=== PATIENT | male | born 1965 ===

== ENCOUNTER 2024-05-03 14:52 | Inpatient (IN) | payer BC ==
[2024-05-03] MEDS ORDERED: Ondansetron PF 4 MG/2 ML Vial ONE (15:35)
[2024-05-03] MEDS ORDERED: Metoclopramide HCl 10 MG (2 mL) VIAL ONE (15:48)
[2024-05-03] MEDS ORDERED: Famotidine/PF 20 mg/2ml Vial ONE (15:48)
[2024-05-03 16:08] LABS: #Basophils 0.07 10x3/uL (0.0-0.2); #Eosinophils Less than 0.03 10x3/uL (0.0-0.7); %Basophils 0.5 % (0.0-1.0); %Lymphocytes 7.6 % (21.0-51.0); %Monocytes 2.3 % (0.0-10.0); %Neutrophils 88.9 % (42.0-75.0); Hemoglobin 16.3 g/dL (14.0-18.0); Mean Corpuscular HGB CONC 33.3 g/dL (32.0-36.0); Mean Corpuscular Hemoglobin 32.5 pg (27.0-31.0); Mean Corpuscular Volume 97.6 fL (78.0-98.0); Mean Platelet Volume 11.4 fL (7.4-10.4); Platelet Count 261 10x3/uL (130-400); RBC Distribution Width 12.3 % (11.5-14.5); Red Blood Cell (RBC) Count 5.02 mill/uL (4.70-6.10)
[2024-05-03 16:29] LABS: ALT (SGPT) 29 U/L (8-55); AST (SGOT) 22 U/L (5-34); Albumin 4.3 g/dL (3.5-5.0); Alkaline Phosphatase 66 U/L (40-110); Anion Gap 33 mmol/L (10-20); BUN (Urea Nitrogen) 14 mg/dL (8.4-25.7); Bilirubin, Total 0.7 mg/dL (0.2-1.2); Calc. Creatinine Clearance 0 mL/min (70-130); Calcium 10.1 mg/dL (7.8-10.44); Carbon Dioxide 12 mmol/L (22-29); Chloride 98 mmol/L (98-107); Estimated GFR 69; Globulin 4.3 g/dL (2.4-3.5); Glucose 287 mg/dL (70-105); Lipase 6 U/L (8-78); Magnesium 2.4 mg/dL (1.6-2.6); Potassium 4.6 mmol/L (3.5-5.1); Protein, Total 8.6 g/dL (6.0-8.3); Sodium 138 mmol/L (136-145); Troponin I Less than 0.010 ng/mL (< 0.028)
[2024-05-03 16:57] LABS: Analyzer IN Cardio ER; Base Excess -16.6 mEq/L (-2.0 to +3.0); Calcium, Ionized (venous) 1.25 mmol/L (1.16-1.32); Chloride (VBG) 100 mmol/L (98-106); Hematocrit-VBG 50 % (42.0-52.0); Potassium (VBG) 4.67 mmol/L (3.70-5.30); Sodium 142 mmol/L (133-146)
[2024-05-03 17:07] LABS: Actual Bicarbonate (HCO3v) 12.2 mEq/L (22-28)
[2024-05-03 17:08] LABS: Bacteria/HPF None Seen HPF (None Seen); Bilirubin Negative (Negative); Blood, Urine Negative (Negative); CAUTI Indications for Culture Alt mental st,lethar; Clarity Clear (Clear); Glucose, Urine (Dipstick) Greater than 1000 mg/dL (Negative); Ketone, Urine Greater than 150 mg/dL (Negative); Leukocyte Negative Leu/uL (Negative); Nitrite Negative (Negative); Protein, Urine (Dipstick) 20 mg/dL (Neg-Trace); RBC/HPF 0-3 HPF (0-3); Specific Gravity, Urine 1.025 (1.002-1.036); Squamous Epithelial None Seen HPF (0-3); Urobilinogen Normal mg/dL (Less than 2); WBC/HPF 0-3 HPF (0-3)
[2024-05-03 17:09] LABS: Urine Culture Reflex No No
[2024-05-03 17:17] LABS: Magnesium 2.4 mg/dL (1.6-2.6)
[2024-05-03] MEDS ORDERED: INSULIN REGULAR IN 0.9 % NACL 100 ML ONE (18:00)
[2024-05-03] MEDS ORDERED: Sodium Chloride 0.9% 1,000 ML IV PRN ×4 (18:07)
[2024-05-03] MEDS ORDERED: Acetaminophen 325 MG TAB PO PRN (18:07)
[2024-05-03] MEDS ORDERED: NS 0.9% w/ 20 MEQ KCL 1,000 ML IV PRN (18:07)
[2024-05-03] MEDS ORDERED: Dextrose 5 %-0.45 % NaCl 1,000 ML IV PRN (18:07)
[2024-05-03] MEDS ORDERED: hydrALAZINE 20 MG/ML VIAL SLOW IVP PRN (18:07)
[2024-05-03] MEDS ORDERED: Dextrose 50% Abboject 50 ML SYRINGE SLOW IVP PRN (18:07)
[2024-05-03] MEDS ORDERED: Electrolyte Replacement Protocol 1 EACH IVPB SCH (18:07)
[2024-05-03] MEDS ORDERED: INSULIN REGULAR IN 0.9 % NACL 100 ML IVPB SCH (18:15)
[2024-05-03] MEDS ORDERED: NS 0.9% w/ 20 MEQ KCL 1,000 ML ONE (18:17)
[2024-05-03] MEDS: Famotidine 20 MG TAB PO SCH (20:10)
[2024-05-03] MEDS: Metoclopramide HCl 10 MG (2 mL) VIAL IVP PRN (20:10)
[2024-05-03 20:38] VITALS: BMI 35.0
[2024-05-03] MEDS: NS 0.9% w/ 20 MEQ KCL 1,000 ML IV PRN (20:42)
[2024-05-03 20:55] LABS: Anion Gap 30 mmol/L (10-20); BUN (Urea Nitrogen) 14 mg/dL (8.4-25.7); Calc. Creatinine Clearance 122 mL/min (70-130); Carbon Dioxide Less than 8 mmol/L (22-29); Chloride 106 mmol/L (98-107); Estimated GFR 79; Glucose 225 mg/dL (70-105); Potassium 4.6 mmol/L (3.5-5.1); Sodium 138 mmol/L (136-145)
[2024-05-03 22:29] LABS: Anion Gap 26 mmol/L (10-20); BUN (Urea Nitrogen) 14 mg/dL (8.4-25.7); Calc. Creatinine Clearance 128 mL/min (70-130); Calcium 8.5 mg/dL (7.8-10.44); Carbon Dioxide Less than 8 mmol/L (22-29); Chloride 110 mmol/L (98-107); Estimated GFR 83; Glucose 157 mg/dL (70-105); Potassium 4.7 mmol/L (3.5-5.1); Sodium 138 mmol/L (136-145)
[2024-05-03] MEDS: D5 1/2 NS w/20 mEq KCL 1,000 ML IV PRN (22:52)
[2024-05-04 06:19] LABS: Anion Gap 13 mmol/L (10-20); BUN (Urea Nitrogen) 11 mg/dL (8.4-25.7); Calc. Creatinine Clearance 145 mL/min (70-130); Calcium 7.8 mg/dL (7.8-10.44); Carbon Dioxide 16 mmol/L (22-29); Chloride 108 mmol/L (98-107); Estimated GFR 96; Glucose 194 mg/dL (70-105); Potassium 4.4 mmol/L (3.5-5.1); Sodium 133 mmol/L (136-145)
[2024-05-04] MEDS: Enoxaparin 40 MG (0.4 mL) SYRINGE SC SCH (08:06)
[2024-05-04 09:51] VITALS: TEMP 98
[2024-05-04] MEDS: Lisinopril 2.5 MG TAB PO SCH (10:54)
[2024-05-04] MEDS: Insulin Glargine 30 UNITS/0.3 ML VIAL SC SCH (10:54)
[2024-05-04 10:55] VITALS: BP 114/62
[2024-05-04] MEDS: Ondansetron PF 4 MG/2 ML Vial IVP PRN (11:45)
[2024-05-04] MEDS ORDERED: Rosuvastatin 5 MG TAB PO SCH (21:00)
== END 2024-05-04 16:20 | disposition home or self-care (01) | DRG 639 ==
LOC: ERS 14:52 → IMCU/EMU 17:36
PROVIDERS: ADMIT Internal Medicine; ATTEND Internal Medicine
DX: E11.10 Type 2 diabetes mellitus with ketoacidosis without coma (principal); E66.813 Obesity, class 3; S81.801A Unspecified open wound, right lower leg, initial encounter; L40.9 Psoriasis, unspecified; K59.00 Constipation, unspecified; E11.65 Type 2 diabetes mellitus with hyperglycemia; Z79.84 Long term (current) use of oral hypoglycemic drugs; Z79.899 Other long term (current) drug therapy; Z88.0 Allergy status to penicillin; Z68.35 Body mass index [BMI] 35.0-35.9, adult
CPT/HCPCS: 36415; 36416; 80048; 80053; 81001; 82010; 82805; 83690; 83735; 84100; 84484; 85025; 93005; 96361; 96374; 96375; J1650; J1815; J2405; J2765; J3480; J3490